=== PATIENT | male | born 1965 | race Caucasian/White ===

== ENCOUNTER 2022-02-15 23:12 | Observation (INO) ==
[2022-02-16] MEDS ORDERED: ONDANSETRON INJ 2 MG/ML 2 ML VIAL IV STA (00:30)
[2022-02-16] MEDS ORDERED: KETOROLAC TROMETHAMINE 15 MG/ML VIAL IV STA (00:30)
[2022-02-16 00:38] LABS: Basophils # (auto) 0.06 K/uL (0-0.2); Basophils % (auto) 0.4 %; Eosinophils # (auto) 0.14 K/uL (0-0.50); Eosinophils % (auto) 0.8 %; Hematocrit (blood only) 43.9 % (40.1-51.0); Hemoglobin 14.9 g/dl (14.0-18.0); Immature Granulocytes # (auto) 0.09 K/uL (0.00-0.02); Immature Granulocytes % (auto) 0.5 %; Lymphocytes # (auto) 1.89 K/uL (1.2-3.4); Lymphocytes % (auto) 11.2 %; Mean Corpuscular Hemoglobin 30.6 pg (25.0-34.0); Mean Corpuscular Hgb Conc 33.9 g/dL (32.0-36.0); Mean Corpuscular Volume 90.1 fL (80.0-100.0); Mean Platelet Volume 10.4 fL (9.4-12.4); Monocytes # (auto) 1.17 K/uL (0.24-0.82); Neutrophils # (auto) 13.46 K/uL (1.4-6.5); Neutrophils % (auto) 80.1 %; Platelet Count 262 K/uL (130-400); RDW Coefficient of Variation 13.3 % (11.5-14.5); RDW Standard Deviation 44.2 fL (36.4-46.3); Red Blood Count 4.87 M/uL (4.63-6.08); White Blood Count 16.81 K/ul (4.8-10.8)
[2022-02-16 00:45] LABS: Appearance Urine Cloudy (Clear); Bacteria Urine Automated 4+ (Negative); Bilirubin Urine Negative (Negative); Blood Urine 3+ (Negative); Color Urine Orange; Epithelial Cell Urine Auto >30 /lpf (0-5); Glucose Urine UA Negative (Negative); Ketones Urine Trace (Negative); Leukocyte Esterase Urine 1+ (Negative); Nitrite Urine Positive (Negative); Protein Urine 1+ (Negative); RBC Urine Automated >30 /hpf (0-4); Urobilinogen Urine Negative (Negative)
[2022-02-16 00:57] LABS: Albumin Globulin Ratio 1.4 (0.9-2); Albumin Level 4.3 gm/dl (3.4-5.0); BUN Creatinine Ratio 20.6 (10-20); Bilirubin,Total 0.6 mg/dl (0.2-1.0); Calcium 9.3 mg/dl (8.5-10.1); Creatinine Clr Calc Pharmacy 87.1 ml/min; Est GFR (African American) 89.5 ml/min; Est GFR (Non-African American) 77.2 ml/min; Globulin 3.1 gm/dl (2.5-4.0); Potassium 3.8 mmol/L (3.5-5.1); Total Protein 7.4 gm/dl (6.0-8.3)
--- NOTE | 2022-02-16 01:05 | Emergency Department Note ---
History of Present Illness General Chief complaint: Abdominal Pain Stated complaint: ABDOMINAL PAIN Time Seen by Provider: 02/16/22 00:26 History of Present Illness Maximum Pain Intensity: 9 This 57-year-old male patient presents to the emergency department today for evaluation of left-sided abdominal pain. Patient states the pain began about 1 month ago, but worsened suddenly tonight. He states it is in his left lower quadrant. He reports family history and his brothers of diverticulitis and is concerned that that may be his problem at this time. He denies any recent fever. He has had some dry heaves but no vomiting. No diarrhea or constipation. Last bowel movement was this afternoon and was normal. He rates his pain 9/10 and describes it as sharp. The pain does not radiate to the back. He has had some urinary frequency, but states this is chronic for him and not new or unchanged. No hematuria or dysuria. No other associated symptoms he has not taken any medications for his symptoms Past Med/Surg History Medical History No pertinent past medical history Social History Smoking Status: Current some day smoker Preferred Language: Cymraes Feels Safe at Home: Yes Review of Systems A total of 10 systems reviewed and were otherwise negative Physical Exam Vital Signs Vital Signs - 24 hr 02/15/22 23:14 02/16/22 01:12 02/16/22 00:11 Temperature 35.9 C L Temperature Source Temporal Artery Scan Pulse Rate 61 66 Pulse Rate [Apical] 73 Pulse Rate from SpO2 Sensor Respiratory Rate 16 22 22 Respiratory Effort / Characteristics Non-Labored Spontaneous Non-Labored Spontaneous Respiratory Depth Normal Normal Respiratory Pattern Regular Blood Pressure 153/93 H Blood Pressure [Left Arm] 126/90 Blood Pressure Mean 113 Blood Pressure Mean [Left Arm] 102 Pulse Oximetry 97 94 Oxygen Delivery Method Room Air Room Air Sepsis Recent Fever Within 48 Hours No Sepsis New/Unexplained Change in Mental Status N/A Sepsis Action Taken by Nursing No Action Required 02/16/22 00:22 02/16/22 00:23 02/16/22 00:23 Temperature Temperature Source Pulse Rate 55 L 58 L Pulse Rate [Apical] Pulse Rate from SpO2 Sensor 56 L Respiratory Rate 18 16 Respiratory Effort / Characteristics Respiratory Depth Respiratory Pattern Blood Pressure 126/90 Blood Pressure [Left Arm] Blood Pressure Mean 102 Blood Pressure Mean [Left Arm] Pulse Oximetry 98 Oxygen Delivery Method Sepsis Recent Fever Within 48 Hours Sepsis New/Unexplained Change in Mental Status Sepsis Action Taken by Nursing 02/16/22 00:30 02/16/22 00:40 02/16/22 00:50 Temperature Temperature Source Pulse Rate 59 L 67 57 L Pulse Rate [Apical] Pulse Rate from SpO2 Sensor 61 66 57 L Respiratory Rate 16 19 19 Respiratory Effort / Characteristics Respiratory Depth Respiratory Pattern Blood Pressure Blood Pressure [Left Arm] Blood Pressure Mean Blood Pressure Mean [Left Arm] Pulse Oximetry 96 97 98 Oxygen Delivery Method Sepsis Recent Fever Within 48 Hours Sepsis New/Unexplained Change in Mental Status Sepsis Action Taken by Nursing 02/16/22 01:00 02/16/22 01:10 02/16/22 01:20 Temperature Temperature Source Pulse Rate 65 70 71 Pulse Rate [Apical] Pulse Rate from SpO2 Sensor Respiratory Rate 23 24 21 Respiratory Effort / Characteristics Respiratory Depth Respiratory Pattern Blood Pressure Blood Pressure [Left Arm] Blood Pressure Mean Blood Pressure Mean [Left Arm] Pulse Oximetry Oxygen Delivery Method Sepsis Recent Fever Within 48 Hours Sepsis New/Unexplained Change in Mental Status Sepsis Action Taken by Nursing 02/16/22 01:39 02/16/22 01:40 02/16/22 03:00 Temperature Temperature Source Pulse Rate 66 Pulse Rate [Apical] Pulse Rate from SpO2 Sensor 86 68 Respiratory Rate 37 H 19 18 Respiratory Effort / Characteristics Respiratory Depth Respiratory Pattern Blood Pressure 112/66 Blood Pressure [Left Arm] Blood Pressure Mean 81 Blood Pressure Mean [Left Arm] Pulse Oximetry 92 94 Oxygen Delivery Method Sepsis Recent Fever Within 48 Hours Sepsis New/Unexplained Change in Mental Status Sepsis Action Taken by Nursing 02/16/22 03:30 02/16/22 04:00 02/16/22 04:30 Temperature Temperature Source Pulse Rate 74 81 68 Pulse Rate [Apical] Pulse Rate from SpO2 Sensor 75 79 68 Respiratory Rate 18 22 19 Respiratory Effort / Characteristics Respiratory Depth Respiratory Pattern Blood Pressure 121/65 120/68 130/83 Blood Pressure [Left Arm] Blood Pressure Mean 83 85 98 Blood Pressure Mean [Left Arm] Pulse Oximetry 93 93 95 Oxygen Delivery Method Sepsis Recent Fever Within 48 Hours Sepsis New/Unexplained Change in Mental Status Sepsis Action Taken by Nursing 02/16/22 05:00 02/16/22 05:30 Temperature Temperature Source Pulse Rate 69 71 Pulse Rate [Apical] Pulse Rate from SpO2 Sensor 69 71 Respiratory Rate 16 18 Respiratory Effort / Characteristics Respiratory Depth Respiratory Pattern Blood Pressure 102/59 L Blood Pressure [Left Arm] Blood Pressure Mean 73 Blood Pressure Mean [Left Arm] Pulse Oximetry 94 94 Oxygen Delivery Method Sepsis Recent Fever Within 48 Hours Sepsis New/Unexplained Change in Mental Status Sepsis Action Taken by Nursing VITALS: Vitals are noted on the nurse's note and reviewed by myself. Vital signs stable. GENERAL: This is a 57-year-old with, in no acute distress, nondiaphoretic, well- developed well-nourished. SKIN: The skin was without rashes, erythema, edema, or bruising. There is no tenting of the skin. Capillary refill less than 2 seconds. HEAD: Normocephalic atraumatic. EYES: Conjunctivae without injection, sclerae without icterus. NECK: Supple without nuchal rigidity. No lymphadenopathy. No JVD. HEART: Regular rate and rhythm without murmurs gallops or rubs. LUNGS: Clear to auscultation bilaterally without wheezes, rales or rhonchi. No retractions or accessory muscle use. ABDOMEN: Positive bowel sounds x 4. LLQ tenderness to palpation. Otherwise, abdomen soft, nontender, without masses or organomegaly. Millan sign negative. No guarding or rebound tenderness. MUSCULOSKELETAL: No muscle atrophy, erythema, or edema noted. Full range of motion without joint tenderness in all extremities. No tenderness to palpation. Normal gait. Strength 5/5 throughout. NEURO: Patient was alert and oriented to person place and time. No focal neurological deficits. Course Course The patient was seen and evaluated as above. An order was placed for continuous cardiac monitoring. The monitor shows a normal sinus rhythm at a rate of 71 bpm. IV access obtained, labs drawn. Patient medicated with IV fluids, Toradol, Zofran. Imaging performed and reviewed by myself and radiologist as noted. Labs reviewed by myself. I discussed the findings with the patient at bedside. I recommended admission. The patient was agreeable Patient was medicated with ceftriaxone. Discussed the case with Dr. Peaz[facility]. He did agree to see and evaluate the patient for admission Administered Medications Discontinued Medications Ceftriaxone Sodium (Rocephin) 2,000 mg in 70 mls @ 140 mls/hr IV NOW STA Stop: 02/16/22 05:18 Last Infusion: 02/16/22 06:06 Dose: 0 mls/hr Documented By: Admin: 02/16/22 05:26 Dose: 140 mls/hr Documented By: OSITO Ioversol (Optiray 300 100ml) 100 ml IV ONCE ONE Stop: 02/16/22 01:48 Last Admin: 02/16/22 01:47 Dose: 92 ml Documented By: JOHN Ketorolac Tromethamine (Ketorolac Tromethamine 15 Mg/Ml Vial) 15 mg IV NOW STA Stop: 02/16/22 00:31 Last Admin: 02/16/22 00:50 Dose: 15 mg Documented By: ANUSHKA Ondansetron HCl (Ondansetron Inj 2 Mg/Ml 2 Ml Vial) 4 mg IV NOW STA Stop: 02/16/22 00:31 Last Admin: 02/16/22 00:47 Dose: 4 mg Documented By: ANUSHKA Medical Decision Making Differential Diagnosis Etiologies such as appendicitis, diverticulitis, obstruction, inflammatory bowel disease, renal colic, PUD, biliary pathology, pancreatitis, mesenteric ischemia, aortic pathology, infections, genitourinary, UTI, perforated viscus, as well as others were entertained. Medical Records Attestation: I reviewed the patient's medical records. Home Medications Current Medication List: was personally reviewed by me Laboratory Data Attestation: I reviewed the patient's lab results. Leukocytosis of 16,000. No anemia or thrombocytopenia. Renal, hepatic function and electrolytes without significant abnormality. Lipase 20. Urinalysis concerning for 3+ blood, positive nitrates, 4+ bacteria. COVID-19 testing negative. Result diagrams: 02/16/22 00:20 02/16/22 00:20 Lab Results 02/16/22 02/16/22 02/16/22 Range/Units 00:20 00:20 00:22 WBC 16.81 H (4.8-10.8) K/ul RBC 4.87 (4.63-6.08) M/uL Hgb 14.9 (14.0-18.0) g/dl Hct 43.9 (40.1-51.0) % MCV 90.1 (80.0-100.0) fL MCH 30.6 (25.0-34.0) pg MCHC 33.9 (32.0-36.0) g/dL RDW Std Deviation 44.2 (36.4-46.3) fL RDW Coeff of Ian 13.3 (11.5-14.5) % Plt Count 262 (130-400) K/uL MPV 10.4 (9.4-12.4) fL Immature Gran % (Auto) 0.5 % Neut % (Auto) 80.1 % Lymph % (Auto) 11.2 % Ellis % (Auto) 7.0 % Eos % (Auto) 0.8 % Baso % (Auto) 0.4 % Neut # (Auto) 13.46 H (1.4-6.5) K/uL Lymph # (Auto) 1.89 (1.2-3.4) K/uL Ellis # (Auto) 1.17 H (0.24-0.82) K/uL Eos # (Auto) 0.14 (0-0.50) K/uL Baso # (Auto) 0.06 (0-0.2) K/uL Immature Gran # (Auto) 0.09 H (0.00-0.02) K/uL Sodium 136 (136-145) mmol/L Potassium 3.8 (3.5-5.1) mmol/L Chloride 105 (98-107) mmol/L Carbon Dioxide 22 (21-32) mmol/L Anion Gap 9 (3-11) BUN 22 (6-23) mg/dl Creatinine 1.07 (0.6-1.4) mg/dl Est Cr Clr Drug Dosing 87.1 ml/min Est GFR ( Amer) 89.5 ml/min Est GFR (Non-Af Amer) 77.2 ml/min BUN/Creatinine Ratio 20.6 H (10-20) Glucose 125 H (70-99(Fasting)) mg/dl Calcium 9.3 (8.5-10.1) mg/dl Total Bilirubin 0.6 (0.2-1.0) mg/dl AST 38 (13-39) U/L ALT 31 (7-52) U/L Alkaline Phosphatase 64 (34-104) U/L Total Protein 7.4 (6.0-8.3) gm/dl Albumin 4.3 (3.4-5.0) gm/dl Globulin 3.1 (2.5-4.0) gm/dl Albumin/Globulin Ratio 1.4 (0.9-2) Lipase 20 (11-82) U/L Urine Color [place] Urine Appearance Cloudy A (Clear) Urine pH 5.0 (4.5-7.5) Ur Specific [place] 1.020 (1.000-1.030) Urine Protein 1+ H (Negative) Urine Glucose (UA) Negative (Negative) Urine Ketones Trace H (Negative) Urine Blood 3+ H (Negative) Urine Nitrite Positive A (Negative) Urine Bilirubin Negative (Negative) Urine Urobilinogen Negative (Negative) Ur Leukocyte Esterase 1+ H (Negative) Urine WBC (Auto) 10-30 H (0-5) /hpf Urine RBC (Auto) >30 H (0-4) /hpf U Hyaline Cast (Auto) 1-5 (0-5) /lpf U Epithel Cells (Auto) >30 H (0-5) /lpf Urine Bacteria (Auto) 4+ H (Negative) SARS-CoV-2, RNA, NAAT (NEGATIVE) 02/16/22 Range/Units 05:30 WBC (4.8-10.8) K/ul RBC (4.63-6.08) M/uL Hgb (14.0-18.0) g/dl Hct (40.1-51.0) % MCV (80.0-100.0) fL MCH (25.0-34.0) pg MCHC (32.0-36.0) g/dL RDW Std Deviation (36.4-46.3) fL RDW Coeff of Ian (11.5-14.5) % Plt Count (130-400) K/uL MPV (9.4-12.4) fL Immature Gran % (Auto) % Neut % (Auto) % Lymph % (Auto) % Ellis % (Auto) % Eos % (Auto) % Baso % (Auto) % Neut # (Auto) (1.4-6.5) K/uL Lymph # (Auto) (1.2-3.4) K/uL Ellis # (Auto) (0.24-0.82) K/uL Eos # (Auto) (0-0.50) K/uL Baso # (Auto) (0-0.2) K/uL Immature Gran # (Auto) (0.00-0.02) K/uL Sodium (136-145) mmol/L Potassium (3.5-5.1) mmol/L Chloride (98-107) mmol/L Carbon Dioxide (21-32) mmol/L Anion Gap (3-11) BUN (6-23) mg/dl Creatinine (0.6-1.4) mg/dl Est Cr Clr Drug Dosing ml/min Est GFR ( Amer) ml/min Est GFR (Non-Af Amer) ml/min BUN/Creatinine Ratio (10-20) Glucose (70-99(Fasting)) mg/dl Calcium (8.5-10.1) mg/dl Total Bilirubin (0.2-1.0) mg/dl AST (13-39) U/L ALT (7-52) U/L Alkaline Phosphatase (34-104) U/L Total Protein (6.0-8.3) gm/dl Albumin (3.4-5.0) gm/dl Globulin (2.5-4.0) gm/dl Albumin/Globulin Ratio (0.9-2) Lipase (11-82) U/L Urine Color Urine Appearance (Clear) Urine pH (4.5-7.5) Ur Specific [place] (1.000-1.030) Urine Protein (Negative) Urine Glucose (UA) (Negative) Urine Ketones (Negative) Urine Blood (Negative) Urine Nitrite (Negative) Urine Bilirubin (Negative) Urine Urobilinogen (Negative) Ur Leukocyte Esterase (Negative) Urine WBC (Auto) (0-5) /hpf Urine RBC (Auto) (0-4) /hpf U Hyaline Cast (Auto) (0-5) /lpf U Epithel Cells (Auto) (0-5) /lpf Urine Bacteria (Auto) (Negative) SARS-CoV-2, RNA, NAAT NEGATIVE (NEGATIVE) Imaging Data Radiologist's Impression: Patient: CLARK RAHMAN (Male) : 67 Status: ER Date: 02/16/22 01:46 Room #: History: PAIN AT LEFT SIDE OF ABD WITH VOMITING Slices: [phone] Priors: Tech: Jaun Cody @ [phone] Exams: CT ABDOMEN & PELVIS With Contrast Contrast: IV Amt: 92 ML OPTIRAY 300 Accession Numbers: [id number] Referring Physician: SHANTE FERREIRA Preliminary Findings Only See Final Report For Complete Findings CT ABDOMEN & PELVIS With Contrast: Bilateral perinephric fat stranding. 6 mm stone in the proximal left ureter. Mild left hydronephrosis. Hypoattenuation in the left kidney maybe secondary to edema. Prominence of the bladder wall maybe at least in part secondary to underdistention. Please correlate with urinalysis if concerned for cystitis. Mild dependent atelectasis bilaterally. Evaluation of the stomach is limited by underdistention. Mild thickening of the adrenal glands. Retroaortic left renal vein. Atherosclerotic changes of the vasculature. No aortic aneurysm or dissection. Diverticulosis without evidence of diverticulitis. Decompressed descending colon and sigmoid colon limits evaluation. No small bowel obstruction. Normal appendix. Small fat-containing umbilical hernia. Radiologist: Demar Belcher M.D. Study ready at 03:18 and initial results transmitted at 04:46 Blood Pressure Blood Pressure Findings: Normal blood pressure MDM Narrative This 57-year-old male patient presents to the emergency department today for evaluation of left lower quadrant abdominal pain. This began about a month ago but worsened yesterday. Patient was found to have a 6 mm stone in the proximal left ureter. This was complicated by an obvious urinary tract infection with 4+ bacteria, leukocyte esterase. Patient does have a leukocytosis. Patient was hydrated with IV fluids. Pain was controlled with IV Toradol. Recommended admission. The patient was agreeable. He will be admitted to the [facility] hospitalist service. Please see hospitalist dictation regarding ongoing management care of this patient The chart was completed utilizing [employer] Speech voice recognition software. Grammatical errors, random word insertions, pronoun errors, and incomplete sentences are an occasional consequence of this system due to software limitations, ambient noise, and hardware issues. Any formal questions or concerns about the content, text, or information contained within the body of this dictation should be directly addressed to the provider for clarification. Impression & Plan Calculus of proximal left ureter, Hydronephrosis of left kidney, UTI (urinary tract infection) Discharge Plan Visit Data Chief Complaint: Abdominal Pain Stated Complaint: ABDOMINAL PAIN ED Provider: Shante Ferreira ED Midlevel Provider: Allison Winslow Discharge Problem: Calculus of proximal left ureter, Hydronephrosis of left kidney, UTI (urinary tract infection) Patient Disposition: Admitted As Inpatient Condition: Good Forms Stand Alone Forms: [facility], Virtual Emergency Department, Important Visit Information Referrals Referrals: Saw Dooley MD [Primary Care Provider] -
[2022-02-16] MEDS ORDERED: OPTIRAY 300 100mL IV ONE (01:47)
[2022-02-16] MEDS ORDERED: cefTRIAXone SODIUM 2,000 MG/70 ML BAG IV STA (04:49)
--- NOTE | 2022-02-16 05:33 | History & Physical Report ---
Date of Service February 16, 2022 Assessment & Plan (1) Calculus of proximal left ureter: Plan: 6 mm proximal left ureteral stone/left hydronephrosis/leukocytosis/UTI- NPO except meds Ceftriaxone 2 g IV daily Morphine sulfate 4 mg IV every 3 hours as needed severe pain Zofran 4 mg IV every 6 hours as needed Famotidine 20 mg IV every 12 hours Lactated Ringer's at 80 mils per hour Follow urine culture and sensitivity Consult urology (2) Hydronephrosis of left kidney: (3) UTI (urinary tract infection): History of Present Illness Chief Complaint: The patient presents to the emergency department with complaint of left-sided flank and left lower quadrant abdominal pain, accompanied by dry heaving without vomiting, that began earlier in the day today. Primary Care Provider: Saw Dooley MD The patient is a 57-year-old male with no significant past medical history who presents to the emergency department with symptoms as noted above. He notes that about a few weeks ago he had a faint twinge of discomfort in the same location, that resolved spontaneously. He has had no previous history of kidney stones. CT scan of abdomen and pelvis in the emergency department shows a 6 mm proximal left ureteral stone with mild left hydronephrosis and bilateral perinephric stranding Past Med/Surg History Medical History No pertinent past medical history Social History Smoking Status: Current some day smoker Preferred Language: Japanese Feels Safe at Home: Yes Review of Systems Review of Systems: The patient denies chest pain, palpitations, shortness of breath, dyspnea on exertion, cough, lower extremity swelling, sore throat, fevers, chills, sweats, vomiting, diarrhea , constipation, blood in urine or stool, dysuria, urinary frequency or urgency, lightheadedness, dizziness, headache, memory loss, loss of consciousness, rash, abnormal bruising or bleeding, imbalance, focal or generalized weakness, numbness or tingling in arms or legs, generalized arthralgias or myalgias, back or neck pain, or night sweats. The review of systems is otherwise negative other than for that already noted above, and at least 10 systems have been reviewed. Physical Exam Physical Exam: The patient is awake, alert and oriented 3, well developed and well nourished, normocephalic and atraumatic, lying in bed and in no acute distress. HEENT--PERRL, EOMI, mucous membranes and oropharynx dry. Neck--supple. No JVD. No bruits. Thyroid normal, trachea midline, no adenopathy. Heart--normal S1 and S2. No murmurs, rubs or gallops. Lungs--clear bilaterally, no respiratory distress, no accessory muscle use. Abdomen--normal bowel sounds and soft. Nontender. Nondistended, no hernias or masses, no organomegaly. Extremities--no cyanosis or clubbing. No edema. There are good distal pulses b/l. Dermatologic--normal skin turgor, normal color, no abnormal lymph nodes, no rash. Neurologic--cranial nerves II through XII grossly intact. Rheumatologic--normal range of motion. Psychiatric--normal affect. Results & Data Results & Data ([facility]) Vital Signs (Past 12 Hours) Vital Signs Temp Pulse Pulse Resp BP BP Pulse Ox 02/16/22 01:40 19 92 02/16/22 01:39 37 H 02/16/22 01:20 71 21 02/16/22 01:10 70 24 02/16/22 01:00 65 23 02/16/22 00:50 57 L 19 98 02/16/22 00:40 67 19 97 02/16/22 00:30 59 L 16 96 02/16/22 00:23 58 L 16 98 02/16/22 00:23 126/90 02/16/22 00:22 55 L 18 02/16/22 00:11 66 22 02/16/22 01:12 73 22 126/90 94 02/15/22 23:14 35.9 C L 61 16 153/93 H 97 O2 Del Method 02/16/22 01:40 02/16/22 01:39 02/16/22 01:20 02/16/22 01:10 02/16/22 01:00 02/16/22 00:50 02/16/22 00:40 02/16/22 00:30 02/16/22 00:23 02/16/22 00:23 02/16/22 00:22 02/16/22 00:11 02/16/22 01:12 Room Air 02/15/22 23:14 Room Air Laboratory Results Laboratory Results WBC 16.81 K/ul (4.8-10.8) H 02/16/22 00:20 RBC 4.87 M/uL (4.63-6.08) 02/16/22 00:20 Hgb 14.9 g/dl (14.0-18.0) 02/16/22 00:20 Hct 43.9 % (40.1-51.0) 02/16/22 00:20 MCV 90.1 fL (80.0-100.0) 02/16/22 00:20 MCH 30.6 pg (25.0-34.0) 02/16/22 00:20 MCHC 33.9 g/dL (32.0-36.0) 02/16/22 00:20 RDW Std Deviation 44.2 fL (36.4-46.3) 02/16/22 00:20 RDW Coeff of Ian 13.3 % (11.5-14.5) 02/16/22 00:20 Plt Count 262 K/uL (130-400) 02/16/22 00:20 MPV 10.4 fL (9.4-12.4) 02/16/22 00:20 Immature Gran % (Auto) 0.5 % 02/16/22 00:20 Neut % (Auto) 80.1 % 02/16/22 00:20 Lymph % (Auto) 11.2 % 02/16/22 00:20 [place] % (Auto) 7.0 % 02/16/22 00:20 Eos % (Auto) 0.8 % 02/16/22 00:20 Baso % (Auto) 0.4 % 02/16/22 00:20 Neut # (Auto) 13.46 K/uL (1.4-6.5) H 02/16/22 00:20 Lymph # (Auto) 1.89 K/uL (1.2-3.4) 02/16/22 00:20 [place]pson # (Auto) 1.17 K/uL (0.24-0.82) H 02/16/22 00:20 Eos # (Auto) 0.14 K/uL (0-0.50) 02/16/22 00:20 Baso # (Auto) 0.06 K/uL (0-0.2) 02/16/22 00:20 Immature Gran # (Auto) 0.09 K/uL (0.00-0.02) H 02/16/22 00:20 Sodium 136 mmol/L (136-145) 02/16/22 00:20 Potassium 3.8 mmol/L (3.5-5.1) 02/16/22 00:20 Chloride 105 mmol/L (98-107) 02/16/22 00:20 Carbon Dioxide 22 mmol/L (21-32) 02/16/22 00:20 Anion Gap 9 (3-11) 02/16/22 00:20 BUN 22 mg/dl (6-23) 02/16/22 00:20 Creatinine 1.07 mg/dl (0.6-1.4) 02/16/22 00:20 Est Cr Clr Drug Dosing 87.1 ml/min 02/16/22 00:20 Est GFR ( Amer) 89.5 ml/min 02/16/22 00:20 Est GFR (Non-Af Amer) 77.2 ml/min 02/16/22 00:20 BUN/Creatinine Ratio 20.6 (10-20) H 02/16/22 00:20 Glucose 125 mg/dl (70-99(Fasting)) H 02/16/22 00:20 Calcium 9.3 mg/dl (8.5-10.1) 02/16/22 00:20 Total Bilirubin 0.6 mg/dl (0.2-1.0) 02/16/22 00:20 AST 38 U/L (13-39) 02/16/22 00:20 ALT 31 U/L (7-52) 02/16/22 00:20 Alkaline Phosphatase 64 U/L (34-104) 02/16/22 00:20 Total Protein 7.4 gm/dl (6.0-8.3) 02/16/22 00:20 Albumin 4.3 gm/dl (3.4-5.0) 02/16/22 00:20 Globulin 3.1 gm/dl (2.5-4.0) 02/16/22 00:20 Albumin/Globulin Ratio 1.4 (0.9-2) 08/19/22 00:20 Lipase 20 U/L (11-82) 02/16/22 00:20 Urine Color [place] 02/16/22 00:22 Urine Appearance Cloudy (Clear) A 02/16/22 00:22 Urine pH 5.0 (4.5-7.5) 02/16/22 00:22 Ur Specific [place] 1.020 (1.000-1.030) 02/16/22 00:22 Urine Protein 1+ (Negative) H 02/16/22 00:22 Urine Glucose (UA) Negative (Negative) 02/16/22 00: Urine Ketones Trace (Negative) H 02/16/22 00:22 Urine Blood 3+ (Negative) H 02/16/22 00:22 Urine Nitrite Positive (Negative) A 02/16/22 00: Urine Bilirubin Negative (Negative) 02/16/22 00:22 Urine Urobilinogen Negative (Negative) 02/16/22 00:22 Ur Leukocyte Esterase 1+ (Negative) H 02/16/22 00:22 Urine WBC (Auto) 10-30 /hpf (0-5) H 02/16/22 00:22 Urine RBC (Auto) >30 /hpf (0-4) H 02/16/22 00:22 U Hyaline Cast (Auto) 1-5 /lpf (0-5) 02/16/22 00:22 U Epithel Cells (Auto) >30 /lpf (0-5) H 02/16/22 00:22 Urine Bacteria (Auto) 4+ (Negative) H 02/16/22 00:22 Code Status & VTE Plan Code Status Full code VTE Prophylaxis Plan VTE Prophylaxis will be ordered: Yes PG Care Time/CCT Total # of Minutes Spent Total Time Spent with Patient: Total time spent is greater than 50% in coordination of care (as documented) at patient's floor/unit and/or counseling patient: Coding Level of Care Code 27180 Initial Inpt Care Lvl 2 Diagnoses Calculus of proximal left ureter N20.1 Hydronephrosis of left kidney N13.30 UTI (urinary tract infection) N39.0
--- NOTE | 2022-02-16 06:09 | Urology Consultation ---
Date of Consultation February 16, 2022 Assessment & Plan (1) Calculus of proximal left ureter: Patient is admitted by the hospitalist service. We recommend proceeding as follows: Provide analgesics Provide antiemetics Provide hydration measures with IV fluids The patient is given Rocephin in the emergency department. I would recommend continue antibiotics due to concern for infection on urinalysis. Urine culture has been sent and antibiotics can be further tailored based on results of this culture Would recommend initiating Flomax for expulsive therapy Recommend keeping the patient n.p.o. for the present time. He will be reevaluated early this morning by urology attending to determine if cystoscopic intervention is required. At the present time the patient is afebrile with normal renal function and is not having pain. Additional recommendations be forthcoming based on his clinical course as it unfolds Supervising Physician Co-Signing Physician Notes I have discussed Mr. Pisano's case with Drake Kennedy PA-C and agree with the above documentation. CT scan demonstrates a 6 mm left ureteral stone and urinalysis is suggestive of infection. We discussed ureteral stent placement to decompress the left kidney. We discussed the risk and benefits of this procedure, including the risk of bleeding, infection, injury to the urinary tract, need for additional stone treatment, inability to place stent, stent discomfort. He expressed understanding and agreed to proceed with cystoscopy and left ureteral stent placement. History of Present Illness Reason for Consultation: Nephrolithiasis History of Present Illness This is a 57-year-old male who presented to the emergency department secondary to left-sided abdominal pain. Patient notes that he has been having an on and off ache in his abdomen mostly in the left lower quadrant for approximately 1 month. He notes that last evening the pain became unbearable so he presented to the emergency department. He specifically notes that the pain is not in his left flank and he denies any radiation of the pain. He did report some dry heaves. He denies any fevers, shakes, or chills. Patient notes that he has had prostate issues affecting his urination for several years and for this reason he does have some intermittent dysuria. He denies any hematuria. He notes that he has never had kidney stones in the past. In the emergency department the patient had a CT scan of the abdomen and pelvis. The patient was noted to have bilateral perinephric fat stranding. He was noted to have a 6 mm stone in the proximal left ureter with mild left hydronephrosis. Labs include a CBC her white blood cell count was 16.8. Hemogl obin, hematocrit, platelet count were noted to be normal. Chemistry profile showed sodium, potassium, BUN, and creatinine were all normal. Urinalysis did show cloudy urine with positive nitrites. There is also 1+ leukocyte Estrace and 10-30 white blood cells per high-power field. There is 4+ bacteria on the study. At the time of my interview the patient was resting comfortably in bed with wel l-controlled pain. He was in no distress. Patient History Medical History No pertinent past medical history Social History Smoking Status: Current some day smoker Preferred Language: [place] Feels Safe at Home: Yes Review of Systems Constitutional: no fever and no chills Eyes: no eye pain Ear, Nose, Mouth, Throat: no ear pain Respiratory: no cough and no dyspnea Cardiovascular: no chest pain Gastrointestinal: + abdominal pain, + nausea and + vomiting Genitourinary: + urinary frequency Musculoskeletal: no back pain Integumentary: no rash Neurologic: no localized weakness Physical Exam Constitutional: WD/WN, vitals as above Eyes: no conjunctival abnormality ENMT: Ears: no hearing impairment Mouth: no oropharynx abnormality Neck: trachea midline Respiratory: normal respiratory effort; no respiratory distress and no labored breathing Cardiovascular: Rate/Rhythm: regular rate and regular rhythm Gastrointestinal (Abdomen): Abdomen is soft, nonrigid, nondistended. At the time of my interview the patient did not have any pain with palpation, specifically in the left lower quadrant where his pain originated prompting his emergency department visit. Bowel sounds are present. Musculoskeletal: No calf tenderness, no mottling of the lower extremities Skin: no rashes Neurologic: moves all extremities Psychiatric: A+Ox3, euthymic affect Results & Data ([facility]) Vital Signs (Past 12 Hours) Vital Signs Temp Pulse Pulse Resp BP BP Pulse Ox 02/16/22 05:30 71 18 94 02/16/22 05:00 69 16 102/59 L 94 02/16/22 04:30 68 19 130/83 95 02/16/22 04:00 81 22 120/68 93 02/16/22 03:30 74 18 121/65 93 02/16/22 03:00 66 18 112/66 94 02/16/22 01:40 19 92 02/16/22 01:39 37 H 02/16/22 01:20 71 21 02/16/22 01:10 70 24 02/16/22 01:00 65 23 02/16/22 00:50 57 L 19 98 02/16/22 00:40 67 19 97 02/16/22 00:30 59 L 16 96 02/16/22 00:23 58 L 16 98 02/16/22 00:23 126/90 02/16/22 00:22 55 L 18 02/16/22 00:11 66 22 02/16/22 01:12 73 22 126/90 94 02/15/22 23:14 35.9 C L 61 16 153/93 H 97 O2 Del Method 02/16/22 05:30 02/16/22 05:00 02/16/22 04:30 02/16/22 04:00 02/16/22 03:30 02/16/22 03:00 02/16/22 01:40 02/16/22 01:39 02/16/22 01:20 02/16/22 01:10 02/16/22 01:00 02/16/22 00:50 02/16/22 00:40 02/16/22 00:30 02/16/22 00:23 02/16/22 00:23 02/16/22 00:22 02/16/22 00:11 02/16/22 01:12 Room Air 02/15/22 23:14 Room Air PG Care Time/CCT Total # of Minutes Spent Total Time Spent with Patient: Total time spent is greater than 50% in coordination of care (as documented) at patient's floor/unit and/or counseling patient: Coding Level of Care Code 11027 Inpt Consult Level 5 Diagnoses Calculus of proximal left ureter N20.1
[2022-02-16] MEDS ORDERED: ONDANSETRON INJ 2 MG/ML 2 ML VIAL IV PRN ×2 (07:50→11:45)
[2022-02-16] MEDS ORDERED: ATROPINE SULFATE 0.1 MG/ML 10ML SYR IV PRN (07:50)
[2022-02-16] MEDS ORDERED: fentaNYL citrate 100 MCG/2 ML VIAL IV PRN (07:50)
[2022-02-16] MEDS ORDERED: ePHEDrine sulfate 50 MG/ML AMP IV PRN (07:50)
--- NOTE | 2022-02-16 07:50 | Anesthesiology Consultation ---
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 History Surgery Operation Date: 02/16/22 10:40 Proposed Procedures p Cystoscopy Left Ureteral Stent Placement - Albin Patel MD Height/Weight Height: 5 ft 8 in Weight: 97 kg Past Medical History Medical History No pertinent past medical history Social History Smoking Status: Current some day smoker Physical Exam Vital Signs Last Vital Signs Temp 96.6 F L 02/15/22 23:14 Pulse 71 02/16/22 05:30 Resp 18 02/16/22 05:30 BP 102/59 L 02/16/22 05:00 Pulse Ox 94 02/16/22 05:30 O2 Del Method 02/16/22 01:12 Testing Laboratory Results 02/16/22 00:20 02/16/22 00:20 Urine Color [place] 02/16/22 00:22 Urine Appearance Cloudy (Clear) A 02/16/22 00:22 Urine pH 5.0 (4.5-7.5) 02/16/22 00:22 Ur Specific [place] 1.020 (1.000-1.030) 02/16/22 00:22 Urine Protein 1+ (Negative) H 02/16/22 00:22 Urine Glucose (UA) Negative (Negative) 02/16/22 00:22 Urine Ketones Trace (Negative) H 02/16/22 00:22 Urine Nitrite Positive (Negative) A 02/16/22 00:22 Ur Leukocyte Esterase 1+ (Negative) H 02/16/22 00:22 Urine WBC (Auto) 10-30 /hpf (0-5) H 02/16/22 00:22 Urine RBC (Auto) >30 /hpf (0-4) H 02/16/22 00:22 U Hyaline Cast (Auto) 1-5 /lpf (0-5) 02/16/22 00:22 U Epithel Cells (Auto) >30 /lpf (0-5) H 02/16/22 00:22 Urine Bacteria (Auto) 4+ (Negative) H 02/16/22 00:22
[2022-02-16] MEDS ORDERED: PROPOFOL IV EMULSION 10 MG/ML 20 ML VIAL IV ONE ×2 (08:11→08:12)
[2022-02-16] MEDS ORDERED: MIDAZOLAM HCL 1 MG/ML 2ML VIAL ONE (08:11)
[2022-02-16] MEDS ORDERED: ONDANSETRON INJ 2 MG/ML 2 ML VIAL ONE (08:11)
[2022-02-16] MEDS ORDERED: fentaNYL citrate 100 MCG/2 ML VIAL ONE (08:12)
[2022-02-16] MEDS ORDERED: LIDOCAINE 2% MPF LOCAL 5 ML VIAL INFIL ONE (08:12)
--- NOTE | 2022-02-16 08:12 | CT Scan Report ---
ABDOMEN AND PELVIS CT WITH IV CONTRAST CT DOSE: 639.82 mGy.cm HISTORY: Acute left lower quadrant abdominal pain with nausea and vomiting LLQ abdominal pain TECHNIQUE: Multiaxial CT images of the abdomen and pelvis were performed following the IV administrat ion of 92 cc of Optiray, A dose lowering technique was utilized adhering to the principles of ALARA. COMPARISON STUDY: CT chest 11/08/2021 FINDINGS: No acute process of the imaged lower chest. Subsegmental atelectasis of the dependent lower lobes. Th ere is no pneumatosis or pneumoperitoneum. The spleen, pancreas, gallbladder and liver are unremarkab le. Thickening of the adrenal glands suggestive of hyperplasia. Patency of the hepatic and portal vei ns. Unremarkable right kidney. Mild left-sided hydroureteronephrosis with delayed nephrogram, perinephric and periureteral inflammatory stranding secondary to a 5 x 4 x 6 mm calculus of the left ureter at t he level of L4. No additional ureteral calculi identified. Circumferential urinary bladder wall thick ening with partial distention. The prostate is upper limits of normal in size. Mild perivesicular str anding. Retroaortic left renal vein. Atherosclerosis of the aorta without aneurysm. Nonspecific borde rline enlarged iliac chain lymph nodes measuring up to 10 mm. No bowel obstruction or bowel wall thickening. Colonic diverticulosis without acute diverticulitis. N ormal appendix. Unremarkable soft tissues. Tiny fat filled periumbilical hernia. No acute fracture. IMPRESSION: 1. Mild left-sided hydroureteronephrosis with delayed nephrogram secondary to a left proximal to mid ureteral calculus measuring 6 mm. 2. No bowel obstruction or bowel wall thickening. Normal appendix. 3. Colonic diverticulosis. 4. Additional findings as above. ACT 112: Negative or not required by law. The above report was generated using voice recognition software. It may contain grammatical, syntax o r spelling errors. Electronically signed by: John Espinoza M.D. 02/16/2022 8:10 AM
[2022-02-16] MEDS ORDERED: GLYCOPYRROLATE 0.2 MG/ML VIAL ONE ×2 (08:55)
[2022-02-16] MEDS ORDERED: KETAMINE 50 MG/5 ML SYRINGE ONE (08:55)
[2022-02-16] MEDS ORDERED: TAMSULOSIN HCL 0.4 MG CAP PO SCH (09:00)
[2022-02-16] MEDS ORDERED: OPTIRAY 300 ONE (09:12)
--- NOTE | 2022-02-16 09:18 | Operative Report ---
PG Post Operative Report Pre & Post Diagnosis Operation Date: 02/16/22 10:40 Pre-Op Diagnosis: Left Ureteral Stone Post-Op Diagnosis: Left Ureteral Stone, Urethral stricture I identified the patient and participated in the time-out.: Yes Procedure Operation Date: 02/16/22 10:40 Actual Procedures p Cystoscopy and Left Ureteral Stent Placement(Left), Urethral dilation - Albin Patel MD Surgeon Albin Patel MD Molded Goods Inspector Trimmer None Estimated Blood Loss 0 Findings See Below Successful left ureteral stent placement. Approximately 6 [place] stricture of the bulbar urethra, dilated with S-curved dilators up to 20 Fr. Specimens None Drains 6 [place] by 26 cm double-J ureteral stent in the left ureter. 16 [place] Maravilla catheter per urethra Anesthesia Type MAC Complications none Disposition Disposition: Recovery Room Indications This is a 57-year-old male who presented to the emergency department with left- sided flank pain. He was found to have a left ureteral stone and urinalysis was suspicious for infection. He is being brought to the OR for left ureteral stent placement. Description of Procedure The patient was identified in the holding area and informed consent was confirmed. He was marked on the left side, then was taken to the operating room where anesthesia was initiated. He was placed in the dorsal lithotomy position with all pressure points appropriately padded. He was prepped and draped in the usual sterile fashion and a preoperative timeout was performed. Upon inspection, his meatus was somewhat narrow. Meatal dilation was performed using curved sounds from 16-22 [place]. A well-lubricated cystoscope was inserted per urethra and panendoscopy was performed. The pendulous urethra was normal with no strictures or mucosal abnormalities. At the bulbar urethra there was a significant stricture down to approximately 6 [place], which the scope could not advance easily passed. A wire was advanced past the stricture and there was a good curl confirmed in the bladder. Over the wire I then performed a urethral dilation using S shaped dilators going from 6-20 [place]. The cystoscope could not be advanced without any trouble. There was minimal bleeding from this area and it looked to be a fairly dense scar. The prostate was of normal size. His bladder appeared grossly normal with no tumors or stones appreciated. Ureteral orifices were in orthotopic position bilaterally. A 5 [place] open-ended catheter was inserted and used to intubate the left ureteral orifice. A retrograde pyelogram was performed using Cystografin. The left ureter was normal in course and caliber. There is a transition point in the proximal ureter suspicious for likely stone. There was hydronephrosis of the kidney. A 0.038 inch zip wire was advanced up to the kidney under fluoroscopic guidance. Over the wire, a 6 [place] x 26 cm double-J ureteral stent was advanced. When the wire was removed, there was a good curl in the kidney under fluoroscopic guidance. A curl was visualized in the bladder with the cystoscope. Because of the urethral dilation, a 16 [place] Maravilla catheter was left in position with 10 mL in the balloon. The catheter was attached to gravity drainage. The patient was then awakened from anesthesia and was brought to the PACU in stable condition. I attest to the content of the Intraoperative Record and any orders documented therein. Any exceptions are noted below.
--- NOTE | 2022-02-16 09:48 | Anesthesiology Progress Note ---
Date of Service February 16, 2022 Anesthesia Post Procedure Vital Signs Vital Signs: Temp Pulse Pulse Pulse Resp BP BP 02/16/22 09:24 97.3 F L 83 16 122/73 02/16/22 08:20 99.0 F 78 18 116/76 02/16/22 08:04 75 18 129/68 02/16/22 07:00 69 18 132/96 02/16/22 05:30 71 18 02/16/22 05:00 69 16 102/59 L 02/16/22 04:30 68 19 130/83 02/16/22 04:00 81 22 120/68 02/16/22 03:30 74 18 121/65 02/16/22 03:00 66 18 112/66 02/16/22 01:40 19 02/16/22 01:39 37 H 02/16/22 01:20 71 21 02/16/22 01:10 70 24 02/16/22 01:00 65 23 02/16/22 00:50 57 L 19 02/16/22 00:40 67 19 02/16/22 00:30 59 L 16 02/16/22 00:23 58 L 16 02/16/22 00:23 126/90 02/16/22 00:22 55 L 18 02/16/22 00:11 66 22 02/16/22 01:12 73 22 126/90 02/15/22 23:14 96.6 F L 61 16 153/93 H Pulse Ox O2 Del Method O2 Flow Rate 02/16/22 09:24 95 Oxymask 5 02/16/22 08:20 96 02/16/22 08:04 95 Room Air 02/16/22 07:00 95 Room Air 02/16/22 05:30 94 02/16/22 05:00 94 02/16/22 04:30 95 02/16/22 04:00 93 02/16/22 03:30 93 02/16/22 03:00 94 02/16/22 01:40 92 02/16/22 01:39 02/16/22 01:20 02/16/22 01:10 02/16/22 01:00 02/16/22 00:50 98 02/16/22 00:40 97 02/16/22 00:30 96 02/16/22 00:23 98 02/16/22 00:23 02/16/22 00:22 02/16/22 00:11 02/16/22 01:12 94 Room Air 02/15/22 23:14 97 Room Air Pain Intensity Left Lower Abdomen: Pain Intensity: 5 Transfer of Care Handoff Completed per policy Notes Mental Status: alert / awake / arousable and participated in evaluation Patient Amnestic to Procedure: Yes Nausea / Vomiting: adequately controlled Pain: adequately controlled Airway Patency, RR, SpO2: stable & adequate BP & HR: stable & adequate Hydration State: stable & adequate Anesthetic Complications: no major complications apparent and Pt Satisfied with anesthetic care
--- NOTE | 2022-02-16 11:11 | Fluoroscopy Report ---
FL retrograde includes kub CLINICAL HISTORY: LT STENT TECHNIQUE: 3 views were obtained with the C-arm in the OR with the above procedure. Total fluoroscopy time was 13.8 seconds. Total skin dose was 3.5 mGy. Comparison: None available at the time of this dictation. FINDINGS/IMPRESSION: Intraoperative images were obtained of left retrograde pyelogram with stent plac ement. Please correlate with intraoperative fluoroscopy and operative report. ACT 112: Negative or not required by law. Electronically signed by: Garry Vo M.D. 02/16/2022 11:09 AM
[2022-02-16] MEDS ORDERED: MoRPHine SULFATE 4 MG/ML 1 ML CARP\\VIAL IV PRN (11:45)
[2022-02-16] MEDS ORDERED: LACTATED RINGER'S 1,000 ML IV SCH (11:45)
[2022-02-16] MEDS ORDERED: ACETAMINOPHEN 325 MG TAB PO PRN (11:45)
[2022-02-16] MEDS ORDERED: FAMOTIDINE 20 MG in SYRINGE 3 ML IV SCH (15:00)
--- NOTE | 2022-02-16 19:00 | Discharge Summary ---
Date of Service February 16, 2022 Admission HPI Per Admitting Provider The patient is a 57-year-old male with no significant past medical history who presents to the emergency department with symptoms as noted above. He notes that about a few weeks ago he had a faint twinge of discomfort in the same location, that resolved spontaneously. He has had no previous history of kidney stones. CT scan of abdomen and pelvis in the emergency department shows a 6 mm proximal left ureteral stone with mild left hydronephrosis and bilateral perinephric stranding Principal Diagnosis ureterolithiasis, possible UTI/sepsis Discharge Exam General he is awake and alert pleasant no distress. HEENT normocephalic atraumatic mucous membranes moist. Breathing unlabored no accessory muscle use good effort. Skin shows no rashes no pallor or icterus. Neuro without focal deficits. Discharge Data Allergies Allergy/AdvReac Type Severity Reaction Status Date / Time No Known Allergies Allergy Verified 02/16/22 08:05 Consultations 02/16/22 05:17 ED Decision to Admit Stat 02/16/22 05:57 Consult Urology Stat Procedures Performed Operation Date: 02/16/22 10:40 Actual Procedures p Cystoscopy, Urethral Dilation, Left Retrograde and Left Ureteral Stent Placement(Left) - Albin Patel MD Ordered Studies 02/15/22 23:25 CT abd pelvis IV con only Urgent 02/16/22 [place] retrograde includes kub Routine Hospital Course (1) Calculus of proximal left ureter: Status post cystoscopy and stenting. Possible sepsis (leukocytosis, transient heart rates in the 90s)more concerning about just a superimposed UTI than true sepsis, but cannot entirely rule it out, and was given ceftriaxone. Will finish antibiotics with cefdinir. Stable for homevery much wants to go home, discussed with urology and they are also okay with him going home. Because of urethral stricture, he will have Maravilla in place for at least the next few daysurology will be in contact with him to set up follow-up appointment for this coming week. All questions answered to the best my ability, patient stable for home -Tylenol/ibuprofen for pain control, oxycodone as needed breakthrough or at bedtime -Flomax for the next few days, then ongoing at urology discretion -Ceftriaxone here in the hospital7 more days of cefdinir prescribed, will follow urine culture and adjust antibiotics as an outpatient if needed (discussed with patient he is okay with this) -Maravilla for urethral stricture until removed by urology (2) Hydronephrosis of left kidney: (3) UTI (urinary tract infection): Total Time Total Time Spent Total Time Spent (In Minutes): <30 Discharge Plan Discharge Items Patient Disposition: Home - Self-Care Reason For Visit: 6MM PROXIMAL LEFT URETERAL STONE, MID LEFT HYDRONE Discharge Diagnosis: kidney stone Condition on Discharge: Good Activity: Resume your previous activity Non-emergency contact: Primary Care Provider and Urologist Call non-emergency contact if: you have any medication questions, your symptoms worsen and your temperature is above 101 Follow-up/Referrals: Saw Dooley MD [Primary Care Provider] - Diet: Regular Addtl Attending Provider Instructions: Kidney stone -Fortunately with the stenting procedure, the obstruction to your kidney from the stone has been alleviated. Dr. Patel and the urology office will be in contact with you for follow-up care from there. Oftentimes, while the stent significantly reduces the pain, there can still be a little bit of a colicky painparticularly when you pee (that might not be an issue while the catheter is in place). For the most part, Tylenol or ibuprofen will likely be enough to take care of the pain, but as we discussedfor severe pain or particularly pain at bedtimeI have sent in a prescription for oxycodone. Obviously be careful with itit can make you groggy (so do not drive after taking it) and can cause constipation. Urethral stricture -When he was doing the scope, Dr. Patel noticed that your urethra had a stricture (tightening/narrowing) in itto help with that he felt that leaving the catheter in place for at least a few days would be of benefit. His office will be in contact with you early next week to get a follow-up and look at getting the catheter out/following through with the stricture Probable infection -Your lab work and urinalysis suggest that he had an infection along with the stonethese kind of testings can be a bit nonspecific whenever somebody has the inflammation/pain from the stone, but it is definitely safer to treat in the context that we are seeing with you. Your dose of IV antibiotics in the ER this morning last for 24 hours, so starting the antibiotics by mouth this evening will be more than soon enough. As we discussed, I will keep an eye on your culturessimply because in the modern era we have a lot of resistant bacteria, there is a small chance that I may be calling you with a need to adjust the antibiotic regimen. This is likely only about a 10% chance of actually happening, but I was like to let people know so they are not caught off guard if I do have to call. If you have not heard from the urology office by the end of the day Saturday (or at the latest, early Saturday) I would definitely recommend calling to "close the loop". The office number is [phone], and the office is at [address] [place] [address] , [place] [address] Pending Studies at Discharge: Yes (urine culture) Stand-Alone Forms: [facility], Smoking Cessation, Virtual Emergency Department, Important Visit Information Medications and DC Order Prescriptions: New tamsulosin 0.4 mg Capsule 0.4 mg PO QAM Qty: 10 0RF cefdinir 300 mg capsule 300 mg PO BID 7 Days Qty: 14 0RF oxycodone 5 mg tablet 5 mg PO Q8H PRN (Reason: pain (scale score 7-10)) Qty: 10 0RF Discharge Orders: Discharge Order (Routine); Ordered 02/16/22 Ordered By: Renzo Dillard/Other Patient Handouts: Indwelling Urinary Catheter Dc, Leg Bag Care Dc Admission Data Admit Date/Time: 02/16/22 08:25 Attending Provider: Sergio Paez Admit Provider: Sergio Paez Primary Care Provider: Saw Dooley Other Providers: Sergio Paez ; Albin Patel Other Interventions: Discharge Summary Assessment (RN) Last Done: 02/16/22 16:18 Coding Level of Care Code D/C DAY MANAGEMENT <30 MINS Diagnoses Calculus of proximal left ureter N20.1 Hydronephrosis of left kidney N13.30 UTI (urinary tract infection) N39.0
== END 2022-02-16 18:51 | disposition home or self-care (01) | DRG 854 ==
LOC: ED 23:12 → OR 02-16 08:04 → PACUINP 02-16 08:25 → INTOOBSV 02-16 08:25 → OR 02-16 08:41 → 3N 02-16 15:40